=== PATIENT | female | born 1965 | race African-American/Black ===

== ENCOUNTER 2016-12-01 18:25 | Emergency (ER) | payer MEDICAID ==
[~2016-12-01] VITALS: Ht 175.3 cm; Wt 105.0 kg
[2016-12-01 18:42] VITALS: BP 189/120
[2016-12-01] MEDS ORDERED: IBUPROFEN 600MG TABLET PO ONE (22:45)
== END 2016-12-01 23:36 | disposition home or self-care (01) ==
LOC: ER 22:09 → EDBD 22:09 → ER 23:36
DX: M25.511 Pain in right shoulder (principal); M54.5 Low back pain; F17.200 Nicotine dependence, unspecified, uncomplicated; F12.10 Cannabis abuse, uncomplicated
CPT/HCPCS: 73030; 81025; 99284

== ENCOUNTER 2018-02-12 02:41 | Emergency (ER) | payer MEDICAID ==
[~2018-02-12] VITALS: Ht 176.5 cm; Wt 112.2 kg
[2018-02-12 04:50] VITALS: BP 135/78
[2018-02-12 06:56] LABS: CLARITY URINE CLEAR (CLEAR); COLOR URINE YELLOW (YELLOW); KETONES URINE NEGATIVE (NEGATIVE); LEUKOCYTE ESTERASE URINE 1+ (NEGATIVE); NITRITE URINE NEGATIVE (NEGATIVE); OCCULT BLOOD URINE 1+ (NEGATIVE); PH URINE 5.5 (4.5-8.0); PROTEIN URINE NEGATIVE (NEGATIVE); SPECIFIC GRAVITY URINE 1.031 (1.005-1.030)
== END 2018-02-12 06:52 | disposition left against medical advice (07) ==
LOC: ER 02:41
DX: R10.9 Unspecified abdominal pain (principal)
CPT/HCPCS: 81003; 99283; Z7610

== ENCOUNTER 2019-09-01 03:45 | Emergency (ER) | payer MEDICAID ==
[~2019-09-01] VITALS: Ht 175.3 cm; Wt 111.0 kg
[2019-09-01] MEDS ORDERED: AMOXICILLIN/POTASSIUM CLAVULANATE 875/125MG TAB PO ONE (05:15)
[2019-09-01] MEDS ORDERED: IBUPROFEN 800MG TABLET PO ONE (05:15)
[2019-09-01 05:39] VITALS: BP 160/92
== END 2019-09-01 05:41 | disposition home or self-care (01) ==
LOC: ER 03:45
DX: K04.7 Periapical abscess without sinus (principal)
CPT/HCPCS: 99283

== ENCOUNTER 2024-12-21 23:14 | Emergency (ER) | payer MEDICAID ==
[~2024-12-21] VITALS: Ht 172.7 cm; Wt 102.0 kg
[2024-12-21 23:59] VITALS: O2SAT 99
[2024-12-22] MEDS: ACETAMINOPHEN 325MG TABLET PO ONE (01:52)
[2024-12-22] MEDS: KETOROLAC 30MG/ML VIAL IM ONE (01:52)
[2024-12-22 02:33] LABS: BASOPHILS % 0.4 % (0.0-2.0); EOSINOPHILS % 0.7 % (0.0-5.0); HEMATOCRIT. 44.1 % (36.0-48.0); HEMOGLOBIN. 14.4 g/dL (12.0-16.0); LYMPHOCYTES % 30.4 % (20.0-50.0); MEAN CORPUSCULAR HEMOGLOBIN 27.2 pg (28.0-32.0); MEAN CORPUSCULAR HGB CONC 32.5 g/dL (31.0-37.0); MEAN CORPUSCULAR VOLUME 83.6 fL (81.0-99.0); MEAN PLATELET VOLUME 8.3 fl (7.4-10.4); NEUTROPHILS % 58.5 % (40.0-76.0); PLATELET 306 x1000/uL (130-400); RED BLOOD CELL COUNT 5.28 mill/uL (4.2-5.4); RED CELL DISTRIBUTION WIDTH 14.8 % (11.6-14.6)
[2024-12-22 02:40] LABS: PROTHROMBIN TIME 10.6 sec (9.6-11.0)
[2024-12-22 02:41] LABS: CHLORIDE 104 mEq/L (98-107); POTASSIUM 4.4 mEq/L (3.5-5.1); SODIUM 138 mEq/L (136-145)
[2024-12-22 02:42] LABS: CARBON DIOXIDE 28 mEq/L (21-32)
[2024-12-22 02:43] LABS: CALCIUM 10.8 mg/dL (8.7-10.4)
[2024-12-22 02:47] LABS: CREATININE 1.1 mg/dL (0.6-1.0)
[2024-12-22 02:48] LABS: GLUCOSE 92 mg/dL (70-105); UREA NITROGEN BLOOD 17 mg/dL (9-23)
[2024-12-22 02:49] LABS: ALANINE AMINOTRANSFERASE 11 IU/L (10-49); ALBUMIN 4.7 g/dL (3.2-4.8); ASPARTATE AMINOTRANSFERASE 15 IU/L (<34)
[2024-12-22 02:50] LABS: BILIRUBIN DIRECT 0.1 mg/dL (<=3.0); BILIRUBIN TOTAL 0.4 mg/dL (0.1-1.0); PROTEIN TOTAL 7.7 g/dL (6.0-8.3)
[2024-12-22] MEDS ORDERED: KETO10TA2 MT (04:10)
[2024-12-22] MEDS ORDERED: AMOX1TAB16 MT (04:10)
[2024-12-22 04:28] VITALS: BP 103/66; PULSE 60; RESP 16; TEMP 36.6; O2SAT 100
== END 2024-12-22 04:34 | disposition home or self-care (01) ==
LOC: ER 23:48
DX: K04.7 Periapical abscess without sinus (principal); R51.9 Headache, unspecified; I10 Essential (primary) hypertension; Z79.899 Other long term (current) drug therapy
CPT/HCPCS: 99283; 80076; 80048; 85025; 85610; 36415; 96372; J1885; Z7610